=== PATIENT | female | born 1990 | race Caucasian/White ===

== ENCOUNTER 2024-12-22 15:03 | Inpatient (IN) | payer OTHER ==
[2024-12-22] MEDS: ELECTROLYTE-148 SOLN 1,000 ML IV SCH (16:00)
[2024-12-22 16:28] VITALS: BMI 26.7
[2024-12-22] MEDS ORDERED: OXYTOCIN 30 UNITS in 0.9% NS 30 UNIT/500 ML INFUS.BAG IVPB ONE (16:59)
[2024-12-22] MEDS: OXYTOCIN 30 UNITS in 0.9% NS 30 UNIT/500 ML INFUS.BAG IVPB SCH (17:00)
[2024-12-22 17:04] LABS: ABSOLUTE IMMATURE GRANULOCYTES 0.13 x10^3/uL (0.0-0.031); BASOPHILS # 0.06 x10^3/uL (0.01-0.08); EOSINOPHIL % 0.4 % (0.7-5.8); EOSINOPHILS # 0.05 x10^3/uL (0.04-0.36); HEMATOCRIT 37.8 % (34.1-44.9); HEMOGLOBIN 12.7 g/dL (11.2-15.7); MCHC 33.6 g/dl (32.2-35.5); MEAN PLT VOLUME 10.9 fl (9.4-12.3); MONOCYTE # 0.89 x10^3/uL (0.24-0.86); MONOCYTE % 7.3 % (4.7-12.5); PLATELET COUNT 134 x10^3/uL (182-369); RDW 15.9 % (12.1-16.8)
[2024-12-22 17:22] LABS: INR 0.93 (0.83-1.09); PROTHROMBIN TIME (PATIENT) 10.1 SEC (9.7-13.0)
[2024-12-22 17:24] LABS: ACTIVATED PTT 27.2 SECONDS (25.2-36.5); POTASSIUM 3.6 mmol/L (3.5-5.1)
[2024-12-22 17:25] LABS: CALCIUM 9.4 mg/dL (8.5-10.1)
[2024-12-22 17:26] LABS: BLOOD UREA NITROGEN 8.2 mg/dL (7-18)
[2024-12-22 17:29] LABS: CREATININE 0.4 mg/dL (0.55-1.3)
[2024-12-22 18:25] LABS: HIV INTERPRETATION NEGATIVE (NEGATIVE)
[2024-12-22] MEDS ORDERED: FENTANYL/BUPIVACAINE/NS/PF - PCEA - 50 ML DISP.SYRIN EP ONE (19:12)
[2024-12-22] MEDS: FENTANYL/BUPIVACAINE/NS/PF - PCEA - 50 ML DISP.SYRIN EP SCH (19:35)
[2024-12-22] MEDS ORDERED: NALOXONE HCL 0.4 MG/ML VIAL IVPUSH PRN (19:57)
[2024-12-22] MEDS ORDERED: LIDOCAINE HCL 1% PRESERVATIVE FREE - 30ML VIAL ONE (20:57)
[2024-12-22] MEDS ORDERED: OXYTOCIN 20 UNITS in 0.9% NS 20 UNIT/1,000 ML INFUS.BAG IV ONE (20:58)
[2024-12-22] MEDS ORDERED: CEFAZOLIN 1 GM/D5W 1 GM/50 ML BAG ONE ×2 (21:23→22:25)
[2024-12-22] MEDS: METHYLERGONOVINE MALEATE 0.2 MG/1 ML AMP IM PRN (21:44)
[2024-12-22] MEDS: OXYTOCIN 20 UNITS in 0.9% NS 20 UNIT/1,000 ML INFUS.BAG IV SCH (21:45)
[2024-12-22 22:12] LABS: CORD BASE EXCESS -5.8 mmol/L (0-2); CORD HCO3 22.3 mmHg (20-29); CORD PCO2 53.7 mmHg (30-78); CORD pH 7.237 (7.14-7.44)
[2024-12-22 22:15] LABS: CORD BASE EXCESS -4.2 mmol/L (0-2); CORD HCO3 19.6 mmHg (20-29); CORD PCO2 32.7 mmHg (30-78); CORD pH 7.396 (7.14-7.44)
[2024-12-22] MEDS ORDERED: BISACODYL 10 MG SUPP.RECT RC PRN (22:21)
[2024-12-22] MEDS ORDERED: BENZOCAINE 28 GM HEMORRHOIDAL OINTMENT TP PRN (22:21)
[2024-12-22] MEDS: CEFAZOLIN SODIUM 2 GM in DEXTROSE 5%-WATER 100 ML IVPB ONE (22:30)
[2024-12-22] MEDS ORDERED: IBUPROFEN 600 MG TABLET (FP) PO ONE (23:47)
[2024-12-22] MEDS: IBUPROFEN 600 MG TABLET (FP) PO PRN (23:50)
[2024-12-23] MEDS: BENZOCAINE 20% 57 GM BOTTLE TP PRN (00:46)
[2024-12-23] MEDS: WITCH HAZEL 50% (TUCKS) 40 PAD/JAR PAD TP PRN (00:46)
[2024-12-23] MEDS: oxyCODONE HCL 5 MG TABLET PO PRN (02:32)
[2024-12-23 07:36] LABS: ABSOLUTE IMMATURE GRANULOCYTES 0.12 x10^3/uL (0.0-0.031); BASOPHILS # 0.06 x10^3/uL (0.01-0.08); EOSINOPHIL % 0.1 % (0.7-5.8); EOSINOPHILS # 0.02 x10^3/uL (0.04-0.36); HEMOGLOBIN 11.5 g/dL (11.2-15.7); MCHC 32.9 g/dl (32.2-35.5); MEAN CELL VOLUME 94.6 fl (79.4-94.8); MEAN PLT VOLUME 11.2 fl (9.4-12.3); MONOCYTE # 1.42 x10^3/uL (0.24-0.86); MONOCYTE % 8.1 % (4.7-12.5); PLATELET COUNT 151 x10^3/uL (182-369); RDW 15.6 % (12.1-16.8)
[2024-12-23] MEDS: ACETAMINOPHEN 325 MG TABLET (FP) PO PRN (09:45)
[2024-12-23] MEDS ORDERED: SENNOSIDES/DOCUSATE COMBO (SENNA PLUS) TABLET (UD) PO PRN (22:00)
[2024-12-23 22:22] VITALS: RESP 17
[2024-12-24 09:32] VITALS: BP 99/59; PULSE 67; TEMP 97.9
== END 2024-12-24 13:59 | disposition home or self-care (01) | DRG 373 ==
LOC: JLDR 15:03 → J3W 12-23 00:29
PROVIDERS: ADMIT Obstetrics & Gynecology; ATTEND Obstetrics & Gynecology
PROC: 10E0XZZ Delivery of Products of Conception, External Approach (ICD-10-PCS; principal; 2024-12-22)
PROC: 0HQ9XZZ Repair Perineum Skin, External Approach (ICD-10-PCS; 2024-12-22)
DX: O70.0 First degree perineal laceration during delivery (principal); Z3A.38 38 weeks gestation of pregnancy; Z37.0 Single live birth
CPT/HCPCS: 36415; 36600; 59409; 80048; 82803; 85025; 85610; 85730; 86780; 86850; 86900; 86901; 86922; 87389